=== PATIENT | male | born 1950 | race Asian ===

== ENCOUNTER 2019-12-03 12:50 | Outpatient (CLI) | payer MEDICARE ==
[~2019-12-03] VITALS: Ht 167.6 cm; Wt 60.8 kg
[2019-12-04] MEDS ORDERED: DOXAZOSIN MESYLA4 MG ORAL (13:05)
[2019-12-04] MEDS ORDERED: ASPIRIN EC81 MG ORAL (13:05)
[2019-12-04] MEDS ORDERED: LOSARTAN POTASS50 MG ORAL (13:05)
--- NOTE | 2019-12-07 17:00 | Consultation ---
DATE OF CONSULTATION: 12/03/2019 CONSULTING PHYSICIAN: Jourdan Childers M.D. CHIEF COMPLAINT: Abdominal pain. HISTORY OF PRESENT ILLNESS: Most of history per chart. The patient is a very poor historian. There is a significant by language barrier. According to the chart, the patient was diagnosed with painless jaundice, had an ERCP metallic stent placement. There was a concern for pancreatic mass and referred to us for EUS for biopsy of pancreatic mass. PAST MEDICAL HISTORY: 1. Painless jaundice. 2. Pancreatic mass. 3. Hypertension. 4. Anemia. PAST SURGICAL HISTORY: None. MEDICATIONS: Please see medication reconciliation list. SOCIAL HISTORY: The patient denies any tobacco, alcohol, or IV drug abuse. ALLERGIES: No known allergies. REVIEW OF SYSTEMS: Positive for weight loss and abdominal pain. PHYSICAL EXAMINATION: VITAL SIGNS: Stable. HEENT: Normocephalic and atraumatic. Sclerae anicteric. NECK: Supple. No evidence of obvious lymphadenopathy. CARDIOVASCULAR: Regular rate and rhythm. Plus S1-S2. LUNGS: Clear to auscultation bilaterally. ABDOMEN: Positive bowel sounds. Soft and nontender. No rebound. No peritoneal sign. EXTREMITIES: No cyanosis, no clubbing, no edema. ASSESSMENT AND PLAN: This is a 69-year-old male with painless jaundice, biliary obstruction, and possible pancreatic mass, status post stent placement, needs EUS and FNA for diagnosis. Plan to get an authorization for that procedure and schedule when it is obtained. Jourdan Childers M.D. DR: MONICA JOB#: [id number] CC:
== END 2019-12-03 14:50 | disposition home or self-care (01) ==
LOC: PAN 12:50
DX: R10.9 Unspecified abdominal pain (principal); I10 Essential (primary) hypertension; R63.4 Abnormal weight loss; Z68.21 Body mass index [BMI] 21.0-21.9, adult; K83.1 Obstruction of bile duct
CPT/HCPCS: G0463